=== PATIENT | female | born 1990 | race Caucasian/White ===

== ENCOUNTER 2023-03-05 04:30 | Inpatient (IN) | payer OTHER ==
[2023-03-05] MEDS: ELECTROLYTE-148 SOLN 1,000 ML IV SCH (05:30)
[2023-03-05 06:08] VITALS: BMI 30.7
[2023-03-05 06:11] LABS: INR 1.02 (0.83-1.09); PROTHROMBIN TIME (PATIENT) 11.8 SEC (9.7-13.0)
[2023-03-05 06:13] LABS: ACTIVATED PTT 27.6 SECONDS (25.2-36.5)
[2023-03-05 06:29] LABS: POTASSIUM 3.6 mmol/L (3.5-5.1)
[2023-03-05 06:31] LABS: BLOOD UREA NITROGEN 3.7 mg/dL (7-18); CALCIUM 8.7 mg/dL (8.5-10.1)
[2023-03-05 06:34] LABS: CREATININE 0.5 mg/dL (0.55-1.3)
[2023-03-05 06:43] LABS: BASO % 0.3 % (0-2.0); EOS % 0.7 % (0-4.5); HEMATOCRIT 35.1 % (32.4-45.2); HEMOGLOBIN 11.5 GM/dL (10.7-15.3); LYMPH % 27.9 % (8-40); MCH 24.9 pg (25.7-33.7); MCHC 32.8 g/dl (32.0-36.0); MEAN CELL VOLUME 75.9 fl (80-96); MONO % 10.9 % (3.8-10.2); NEUT % 60.2 % (42.8-82.8); PLATELET COUNT 171 10^3/uL (134-434); RBC 4.62 M/mm3 (3.60-5.2); WHITE BLOOD COUNT 5.4 K/mm3 (4.0-10.0)
[2023-03-05] MEDS ORDERED: FENTANYL/BUPIVACAINE/NS/PF - PCEA - 50 ML DISP.SYRIN EP ONE (07:37)
[2023-03-05] MEDS ORDERED: NALOXONE HCL 0.4 MG/ML VIAL IVPUSH PRN (07:40)
[2023-03-05] MEDS ORDERED: BUPIVACAINE HCL/PF 0.25% (2.5MG/ML) 10 ML VIAL ONE (07:46)
[2023-03-05] MEDS ORDERED: LIDO 2%/EPI 1:200000 PRESRVFRE (20 ML SDVIAL) ONE (07:46)
[2023-03-05] MEDS: FENTANYL/BUPIVACAINE/NS/PF - PCEA - 50 ML DISP.SYRIN EP SCH (08:05)
[2023-03-05] MEDS ORDERED: OXYTOCIN 20 UNITS in 0.9% NS 20 UNIT/1,000 ML INFUS.BAG IV ONE (09:33)
[2023-03-05] MEDS: OXYTOCIN 20 UNITS in 0.9% NS 20 UNIT/1,000 ML INFUS.BAG IV SCH (09:50)
[2023-03-05] MEDS ORDERED: oxyCODONE HCL 5 MG TABLET PO PRN (10:12)
[2023-03-05] MEDS ORDERED: BENZOCAINE 20% 57 GM BOTTLE TP PRN (10:12)
[2023-03-05] MEDS ORDERED: BENZOCAINE 28 GM HEMORRHOIDAL OINTMENT TP PRN (10:12)
[2023-03-05] MEDS ORDERED: METHYLERGONOVINE MALEATE 0.2 MG/1 ML AMP IM PRN (10:12)
[2023-03-05] MEDS ORDERED: ACETAMINOPHEN 325 MG TABLET (FP) PO PRN (10:12)
[2023-03-05] MEDS ORDERED: WITCH HAZEL 50% (TUCKS) 40 PAD/JAR PAD TP PRN (10:12)
[2023-03-05 10:48] LABS: CORD BASE EXCESS -4.1 mmol/L (0-2); CORD pH 7.317 (7.14-7.44)
[2023-03-05 10:49] LABS: CORD HCO3 20.6 mmHg (20-29); CORD PCO2 57.5 mmHg (30-78); CORD pH 7.173 (7.14-7.44)
[2023-03-05] MEDS ORDERED: BISACODYL 10 MG SUPP.RECT RC PRN (10:51)
[2023-03-05] MEDS: IBUPROFEN 600 MG TABLET (FP) PO PRN (15:43)
[2023-03-05 16:01] VITALS: RESP 18
[2023-03-06 08:15] LABS: BASO % 0.3 % (0-2.0); HEMATOCRIT 31.7 % (32.4-45.2); HEMOGLOBIN 10.6 GM/dL (10.7-15.3); LYMPH % 31.8 % (8-40); MCH 25.3 pg (25.7-33.7); MCHC 33.5 g/dl (32.0-36.0); MEAN CELL VOLUME 75.6 fl (80-96); MEAN PLT VOLUME 9.8 fl (7.5-11.1); MONO % 10.3 % (3.8-10.2); NEUT % 56.6 % (42.8-82.8); PLATELET COUNT 148 10^3/uL (134-434); RDW 15.6 % (11.6-15.6)
[2023-03-06] MEDS: DIPHTH,PERTUSS(ACELL),TET 0.5 ML DISP.SYRIN IM ONE (12:45)
[2023-03-06] MEDS ORDERED: SENNOSIDES/DOCUSATE COMBO (SENNA PLUS) TABLET (UD) PO PRN (22:00)
[2023-03-07 08:51] VITALS: BP 130/88; PULSE 76; TEMP 98.5
== END 2023-03-07 13:32 | disposition home or self-care (01) | DRG 560 ==
LOC: JDEL 04:30 → JLDR 05:15 → J3W 12:18
PROVIDERS: ADMIT Obstetrics & Gynecology; ATTEND Obstetrics & Gynecology
PROC: 10E0XZZ Delivery of Products of Conception, External Approach (ICD-10-PCS; principal; 2023-03-05)
DX: O69.81X0 Labor and delivery complicated by cord around neck, without compression, not applicable or unspecified (principal); Z3A.39 39 weeks gestation of pregnancy; Z37.0 Single live birth
CPT/HCPCS: 36415; 36600; 59025; 80048; 82803; 83986-QW; 85025; 85610; 85730; 86780; 86850; 86900; 86901; 90715

== ENCOUNTER 2024-10-13 03:15 | Inpatient (IN) | payer OTHER ==
[2024-10-13 03:58] VITALS: BMI 33.0
[2024-10-13] MEDS: ELECTROLYTE-148 SOLN 1,000 ML IV SCH (04:10)
[2024-10-13] MEDS ORDERED: AMPICILLIN SODIUM 2 GM VIAL ONE (04:31)
[2024-10-13 04:35] LABS: ABSOLUTE IMMATURE GRANULOCYTES 0.03 x10^3/uL (0.0-0.031); BASOPHILS # 0.01 x10^3/uL (0.01-0.08); EOSINOPHIL % 0.6 % (0.7-5.8); EOSINOPHILS # 0.04 x10^3/uL (0.04-0.36); MCHC 32.7 g/dl (32.2-35.5); MEAN CELL VOLUME 74.3 fl (79.4-94.8); MEAN PLT VOLUME 12.2 fl (9.4-12.3); MONOCYTE # 0.51 x10^3/uL (0.24-0.86); MONOCYTE % 7.8 % (4.7-12.5); RDW 15.3 % (12.1-16.8)
[2024-10-13] MEDS: AMPICILLIN - 2 GM in SODIUM CHLORIDE 100 ML IVPB ONE (04:35)
[2024-10-13] MEDS ORDERED: FENTANYL/BUPIVACAINE/NS/PF - PCEA - 50 ML DISP.SYRIN EP ONE (04:37)
[2024-10-13 04:51] LABS: INR 1.02 (0.83-1.09); PROTHROMBIN TIME (PATIENT) 11.1 SEC (9.7-13.0)
[2024-10-13 04:53] LABS: ACTIVATED PTT 26.6 SECONDS (25.2-36.5)
[2024-10-13] MEDS ORDERED: OXYTOCIN 20 UNITS in 0.9% NS 20 UNIT/1,000 ML INFUS.BAG IV ONE (04:58)
[2024-10-13] MEDS: OXYTOCIN 20 UNITS in 0.9% NS 20 UNIT/1,000 ML INFUS.BAG IV SCH (05:09)
[2024-10-13 05:15] LABS: CO2 24.0 mmol/L (21-32); GLUCOSE,RANDOM 82.0 mg/dL (74-106)
[2024-10-13 05:18] LABS: CREATININE 0.6 mg/dL (0.55-1.3); SGOT/AST 14.0 U/L (15-37); SGPT/ALT 15.0 U/L (13-61)
[2024-10-13 05:20] LABS: TOT PROT 6.2 g/dl (6.4-8.2)
[2024-10-13] MEDS ORDERED: BENZOCAINE 20% 57 GM BOTTLE TP PRN (05:20)
[2024-10-13] MEDS ORDERED: BISACODYL 10 MG SUPP.RECT RC PRN (05:20)
[2024-10-13] MEDS ORDERED: METHYLERGONOVINE MALEATE 0.2 MG/1 ML AMP IM PRN (05:20)
[2024-10-13] MEDS ORDERED: ACETAMINOPHEN 325 MG TABLET (FP) PO PRN (05:20)
[2024-10-13] MEDS ORDERED: WITCH HAZEL 50% (TUCKS) 40 PAD/JAR PAD TP PRN (05:20)
[2024-10-13] MEDS ORDERED: BENZOCAINE 28 GM HEMORRHOIDAL OINTMENT TP PRN (05:20)
[2024-10-13 05:21] LABS: ALK PHOS 113.0 U/L (45-117)
[2024-10-13 05:32] LABS: CORD BASE EXCESS -5.4 mmol/L (0-2); CORD BASE EXCESS -5.900 mmol/L (0-2); CORD HCO3 20.1 mmHg (20-29); CORD HCO3 21.6 mmHg (20-29); CORD PCO2 39.3 mmHg (30-78); CORD PCO2 49.8 mmHg (30-78); CORD pH 7.255 (7.14-7.44); CORD pH 7.326 (7.14-7.44)
[2024-10-13 05:47] LABS: COCAINE, UR NEGATIVE (NEGATIVE); URINE AMPHETAMINES NEGATIVE (NEGATIVE); URINE BARBITURATES NEGATIVE (NEGATIVE); URINE BENZODIAZEPINES NEGATIVE (NEGATIVE)
[2024-10-13 05:48] LABS: METHADONE, UR NEGATIVE (NEGATIVE); PHENCYCLIDINE,URINE NEGATIVE (NEGATIVE)
[2024-10-13 05:54] LABS: OPIATES, URI NEGATIVE (NEGATIVE)
[2024-10-13] MEDS: IBUPROFEN 600 MG TABLET (FP) PO PRN (09:30)
[2024-10-13 12:47] LABS: SYPHILIS W/ RPR CONF NON-REACTIVE (NONREACTIVE)
[2024-10-13 12:48] LABS: HEPATITIS B SURFACE AG MATERN NON-REACTIVE (NONREACTIVE)
[2024-10-13 13:17] LABS: HCV DIAGNOSTIC IN-HOUSE W/RFLX NON-REACTIVE (NONREACTIVE)
[2024-10-13 13:19] LABS: HIV INTERPRETATION NEGATIVE (NEGATIVE)
[2024-10-13] MEDS: OXYTOCIN 30 UNITS in 0.9% NS 30 UNIT/500 ML INFUS.BAG IVPB SCH (20:29)
[2024-10-13] MEDS: AMPICILLIN - 1 GM in SODIUM CHLORIDE 100 ML IVPB SCH (20:31)
[2024-10-13 22:13] VITALS: RESP 18
[2024-10-14 09:39] LABS: MCHC 32.1 g/dl (32.2-35.5); MEAN CELL VOLUME 75.8 fl (79.4-94.8); MEAN PLT VOLUME 12.0 fl (9.4-12.3); RDW 15.6 % (12.1-16.8)
[2024-10-14 11:30] VITALS: BP 124/86; PULSE 84; TEMP 98.2
[2024-10-14] MEDS ORDERED: SENNOSIDES/DOCUSATE COMBO (SENNA PLUS) TABLET (UD) PO PRN (22:00)
== END 2024-10-14 15:45 | disposition home or self-care (01) | DRG 560 ==
LOC: JLDR 03:15 → J3W 08:00
PROVIDERS: ADMIT Obstetrics & Gynecology; ATTEND Obstetrics & Gynecology
PROC: 10E0XZZ Delivery of Products of Conception, External Approach (ICD-10-PCS; principal; 2024-10-13)
DX: O69.81X0 Labor and delivery complicated by cord around neck, without compression, not applicable or unspecified (principal); Z3A.37 37 weeks gestation of pregnancy; Z37.0 Single live birth
CPT/HCPCS: 36415; 36600; 59409; 80053; 80307; 82803; 85025; 85610; 85730; 86780; 86803; 86850; 86900; 86901; 87340; 87389